=== PATIENT | female | born 1985 | race Two or more races ===

== ENCOUNTER 2017-06-13 05:30 | Inpatient (IN) | payer OTHER ==
[2017-06-13] MEDS ORDERED: CARBOPROST 250 MCG INJ IM ×2 (06:00→08:00)
[2017-06-13] MEDS ORDERED: METHYLERGONOVINE 0.2 MG INJ IM ×2 (06:00→08:00)
[2017-06-13] MEDS ORDERED: OXYTOCIN 30 UNITS/LR 500 ML IV ×3 (06:00→08:00)
[2017-06-13] MEDS ORDERED: CEFAZOLIN 2 GM/50 ML (PMX) 50 ML IV (06:00)
[2017-06-13] MEDS ORDERED: MISOPROSTOL 200 MCG TAB PR ×2 (06:00→08:00)
[2017-06-13 06:06] LABS: ADD MAN DIFF? NO
[2017-06-13 06:15] LABS: ABNORMAL IP MESSAGE 1; BASOPHILS % 0.3 % (0.0-2.0); EOSINOPHILS # 0.3 10^3/ul (0.0-0.5); HEMATOCRIT 41.4 % (37.0-47.0); HEMOGLOBIN 13.3 g/dl (12.0-16.0); LYMPHOCYTES # 4.1 10^3/ul (0.8-2.9); LYMPHOCYTES % 39.9 % (15.0-51.0); MEAN CORPUSCULAR HGB CONC 32.1 g/dl (32.0-37.0); MEAN CORPUSCULAR VOLUME 77.7 fl (82.0-101.0); MONOCYTE # 0.5 10^3/ul (0.3-0.9); MONOCYTES % 5.1 % (0.0-11.0); NEUTROPHIL # 5.2 10^3/ul (1.6-7.5); PLATELET COUNT 107 10^3/UL (140-415); RED BLOOD COUNT 5.33 10^6/ul (4.20-5.40); RED CELL DISTRIBUTION WIDTH 17.5 % (11.5-14.5)
[2017-06-13 06:15] LABS: WHITE BLOOD COUNT 10.3 10^3/ul (4.8-10.8)
[2017-06-13] MEDS: LACTATED RINGER'S 1,000 ML IV ×3 (06:24→15:49)
[2017-06-13 06:28] LABS: INR 0.82; PROTIME 11.4 Sec (11.9-14.9); PT RATIO 0.9
[2017-06-13 06:29] LABS: PARTIAL THROMBOPLASTIN TIME 28.6 Sec (25.0-35.0)
[2017-06-13 06:46] LABS: GLUCOSE 88 mg/dl (70-220)
[2017-06-13 06:49] LABS: POSITIVE DIFF @See below
[2017-06-13] MEDS ORDERED: OXYTOCIN 30 UNITS/LR 500 ML BAG IV (07:00)
[2017-06-13 07:32] LABS: HEPATITIS B SURFACE ANTIGEN NEGATIVE (NEGATIVE)
[2017-06-13] MEDS ORDERED: NA PHOSPHATE/BIPHOS 133 ML ENEMA PR (08:00)
[2017-06-13] MEDS ORDERED: METHYLERGONOVINE 0.2 MG TAB PO (08:00)
[2017-06-13] MEDS ORDERED: PHENYLephrine (100 MCG/ML) 5ML SYG (08:01)
[2017-06-13] MEDS ORDERED: ONDANSETRON 4 MG INJ (08:01)
[2017-06-13] MEDS ORDERED: morphine SULFATE/PF (10 MG/10 ML) INJ (08:01)
[2017-06-13] MEDS ORDERED: OXYTOCIN 10 UNIT INJ (08:01)
[2017-06-13] MEDS: CEFAZOLIN 2 GM/50 ML (PMX) 50 ML IV ×2 (08:05→15:47)
[2017-06-13] MEDS: SENNA/DOCUSATE NA (8.6MG/50MG) TAB PO ×2 (09:00→21:00)
[2017-06-13] MEDS: OXYTOCIN 30 UNITS/LR 500 ML IV ×2 (10:06→15:49)
[2017-06-13] MEDS: DIPHENHYDRAMINE 50 MG INJ IV (11:18)
[2017-06-13] MEDS: KETOROLAC 30 MG INJ IV ×3 (11:18→23:30)
[2017-06-13] MEDS: IBUPROFEN 800 MG TAB PO ×2 (14:00→22:00)
[2017-06-13] MEDS ORDERED: ONDANSETRON 4 MG INJ IV (14:30)
[2017-06-13] MEDS ORDERED: DIPHENHYDRAMINE 50 MG INJ IV (14:30)
[2017-06-13] MEDS ORDERED: morphine 2 MG INJ IV (14:30)
[2017-06-13] MEDS ORDERED: NALOXONE (0.4 MG/ML) INJ IV (14:30)
[2017-06-13 15:06] LABS: RAPID PLASMA REAGIN NONREACTIVE (NR)
[2017-06-14] MEDS: CEFAZOLIN 2 GM/50 ML (PMX) 50 ML IV (00:12)
[2017-06-14] MEDS: LACTATED RINGER'S 1,000 ML IV ×2 (05:01→07:31)
[2017-06-14] MEDS: KETOROLAC 30 MG INJ IV (05:34)
[2017-06-14] MEDS: IBUPROFEN 800 MG TAB PO ×3 (06:00→21:41)
[2017-06-14] MEDS: SENNA/DOCUSATE NA (8.6MG/50MG) TAB PO ×2 (08:09→21:12)
[2017-06-14] MEDS: CEFAZOLIN 2 GM/50 ML (PMX) 50 ML IVPB (08:09)
[2017-06-14 08:58] LABS: ADD MAN DIFF? NO
[2017-06-14 09:11] LABS: ABNORMAL IP MESSAGE 1; BASOPHILS % 0.2 % (0.0-2.0); EOSINOPHILS # 0.1 10^3/ul (0.0-0.5); EOSINOPHILS % 1.2 % (0.0-7.0); HEMATOCRIT 35.5 % (37.0-47.0); HEMOGLOBIN 11.5 g/dl (12.0-16.0); LYMPHOCYTES # 2.2 10^3/ul (0.8-2.9); LYMPHOCYTES % 18.8 % (15.0-51.0); MEAN CORPUSCULAR HEMOGLOBIN 25.2 pg (29.0-33.0); MEAN CORPUSCULAR HGB CONC 32.4 g/dl (32.0-37.0); MEAN CORPUSCULAR VOLUME 77.7 fl (82.0-101.0); MEAN PLATELET VOLUME 12.9 fl (7.4-10.4); MONOCYTE # 0.4 10^3/ul (0.3-0.9); MONOCYTES % 3.4 % (0.0-11.0); NEUTROPHIL # 8.9 10^3/ul (1.6-7.5); NEUTROPHILS % 75.9 % (39.0-77.0); PLATELET COUNT 91 10^3/UL (140-415); RED BLOOD COUNT 4.57 10^6/ul (4.20-5.40); RED CELL DISTRIBUTION WIDTH 17.8 % (11.5-14.5)
[2017-06-14 09:11] LABS: WHITE BLOOD COUNT 11.7 10^3/ul (4.8-10.8)
[2017-06-14 09:35] LABS: POSITIVE DIFF @See below
[2017-06-14] MEDS: HYDROCODONE/APAP (5/325) TAB PO ×2 (10:24→18:10)
[2017-06-14] MEDS: BISACODYL (EC) 5 MG TAB PO (14:00)
[2017-06-15] MEDS: HYDROCODONE/APAP (5/325) TAB PO ×3 (03:15→19:26)
[2017-06-15] MEDS: IBUPROFEN 800 MG TAB PO ×3 (06:12→21:55)
[2017-06-15] MEDS: LANOLIN 7 GM TUBE TOP (06:18)
[2017-06-15 08:30] LABS: ADD MAN DIFF? NO
[2017-06-15 08:33] LABS: ABNORMAL IP MESSAGE 1; BASOPHILS % 0.2 % (0.0-2.0); EOSINOPHILS # 0.1 10^3/ul (0.0-0.5); EOSINOPHILS % 1.4 % (0.0-7.0); HEMATOCRIT 33.2 % (37.0-47.0); HEMOGLOBIN 10.7 g/dl (12.0-16.0); LYMPHOCYTES # 3.3 10^3/ul (0.8-2.9); MEAN CORPUSCULAR HEMOGLOBIN 25.2 pg (29.0-33.0); MEAN CORPUSCULAR HGB CONC 32.2 g/dl (32.0-37.0); MEAN CORPUSCULAR VOLUME 78.3 fl (82.0-101.0); MEAN PLATELET VOLUME 12.5 fl (7.4-10.4); MONOCYTE # 0.5 10^3/ul (0.3-0.9); MONOCYTES % 4.7 % (0.0-11.0); NEUTROPHIL # 5.9 10^3/ul (1.6-7.5); NEUTROPHILS % 60.3 % (39.0-77.0); PLATELET COUNT 95 10^3/UL (140-415); RED BLOOD COUNT 4.24 10^6/ul (4.20-5.40); RED CELL DISTRIBUTION WIDTH 17.5 % (11.5-14.5)
[2017-06-15 08:33] LABS: WHITE BLOOD COUNT 9.8 10^3/ul (4.8-10.8)
[2017-06-15] MEDS: SENNA/DOCUSATE NA (8.6MG/50MG) TAB PO ×2 (08:38→21:55)
[2017-06-15 08:40] LABS: POSITIVE DIFF @See below
[2017-06-16] MEDS: IBUPROFEN 800 MG TAB PO ×2 (06:27→14:32)
[2017-06-16] MEDS: DIPHTH/TET/ACEL PERTUSS (ADULT) 0.5 ML VIAL IM* (09:37)
[2017-06-16] MEDS: SENNA/DOCUSATE NA (8.6MG/50MG) TAB PO (09:37)
[2017-06-16] MEDS: HYDROCODONE/APAP (5/325) TAB PO ×2 (12:03→17:19)
[2017-06-16] MEDS: LANOLIN 7 GM TUBE TOP (17:09)
== END 2017-06-16 19:05 | disposition home or self-care (01) | DRG 766 ==
LOC: L-D 05:30 → PP1 12:04
PROVIDERS: Obstetrics & Gynecology
PROC: 10D00Z1 Extraction of Products of Conception, Low, Open Approach (ICD-10-PCS; principal; 2017-06-13 07:30)
DX: O34.211 Maternal care for low transverse scar from previous cesarean delivery (principal); O24.420 Gestational diabetes mellitus in childbirth, diet controlled; D25.9 Leiomyoma of uterus, unspecified; Z83.3 Family history of diabetes mellitus; O34.13 Maternal care for benign tumor of corpus uteri, third trimester; Z37.0 Single live birth; Z3A.39 39 weeks gestation of pregnancy; Z23 Encounter for immunization
CPT/HCPCS: 82947; 82962; 85025; 85610; 85730; 86592; 86850; 86900; 86901; 87340; 90715; 99464